=== PATIENT | female | born 1975 | race Caucasian/White ===

== ENCOUNTER 2016-12-05 23:13 | Inpatient (IN) | payer OTHER ==
[~2016-12-05] VITALS: Ht 160 cm; Wt 50.2 kg
[2016-12-06 00:21] LABS: AMPHETAMINE NEGATIVE (500 ng/mL); BARBITURATES NEGATIVE (200 ng/mL); BENZODIAZEPINES NEGATIVE (150 ng/mL); COCAINE NEGATIVE (150 ng/mL); INTERNAL CONTROLS VALID? YES; METHADONE NEGATIVE (200 ng/mL); METHAMPHETAMINE NEGATIVE (500 ng/mL); OPIATES (MORPHINE) NEGATIVE (100 ng/mL); OXYCODONE NEGATIVE (100 ng/mL); PHENCYCLIDINE NEGATIVE (25 ng/mL); PROPOXYPHENE NEGATIVE (300 ng/mL); THC CANNABINOIDS NEGATIVE (50 ng/mL); TRICYCLIC ANTIDEPRESSANTS NEGATIVE (300 ng/mL)
[2016-12-06 00:21] LABS: BASOPHIL COUNT 0.1 K/uL (0-0.1); EOSINOPHIL (%) 1.3 % (0-5); EOSINOPHIL COUNT 0.1 K/uL (0-0.3); IMMATURE GRANULOCYTE (%) 0.4 % (0.0-0.7); IMMATURE GRANULOCYTE COUNT 0.3 K/uL; LYMPHOCYTE COUNT 2.8 K/uL (1.0-2.8); MCH 29.1 PG (29.0-34.0); MCHC 33.3 G/DL (30.0-36.0); MCV 87.4 FL (83-99); MEAN PLAT.VOLUME 9.9 uM^3 (9.5-12.4); MONOCYTE (%) 9.2 % (3-12); MONOCYTE COUNT 0.6 K/uL (0-0.8); NEUTROPHIL (%) 47.9 % (45-76); NEUTROPHIL COUNT 3.3 K/uL (1.8-6.4); PLATELET COUNT 250 K/uL (156-360); RBC DIS.WIDTH-CV 12.9 % (11.8-14.6); RBC DIS.WIDTH-SD 39.9 % (39-53); RED BLOOD COUNT 4.12 M/uL (3.80-5.20)
[2016-12-06 00:32] LABS: CHLORIDE 109 mEq/L (99-109); POTASSIUM 3.7 mEq/L (3.7-5.4); SODIUM 140 mEq/L (136-147)
[2016-12-06 00:34] LABS: GLUCOSE 98 mg/dL (70-99)
[2016-12-06 00:35] LABS: ANION GAP 6 MEQ/L (2-14)
[2016-12-06 00:36] LABS: TOTAL BILIRUBIN 0.2 mg/dL (0.0-1.0)
[2016-12-06 00:37] LABS: SERUM ETHYL ALCOHOL < 10 mg/dL
[2016-12-06 00:38] LABS: ALKALINE PHOSPHATASE 70 IU/L (3-129); GFR ESTIMATE (CALCULATED) > 59 mL/min/
[2016-12-06 00:40] LABS: UREA NITROGEN (BUN) 16 mg/dL (9-23)
[2016-12-06 00:41] LABS: SALICYLATE < 5.0 MG/DL (15-30)
[2016-12-06] MEDS ORDERED: REMERON15 M2 PO (07:28)
[2016-12-06] MEDS ORDERED: VITAMIN D31000 UNI2 PO (07:29)
[2016-12-06] MEDS ORDERED: CLONAZEPAM1 MG PO (07:29)
[2016-12-06] MEDS ORDERED: VITAMIN C1000 MG PO (07:29)
[2016-12-06] MEDS ORDERED: SYSTANE ULTRA 015 ML BOTH EYES (07:31)
[2016-12-06 10:24] VITALS: BP 109/57
[2016-12-06 10:31] VITALS: BP 109/57
[2016-12-06] MEDS ORDERED: REXULTI1 MG PO (10:57)
[2016-12-06 15:35] VITALS: BP 107/58
[2016-12-07 07:48] VITALS: BP 126/54
[2016-12-07] MEDS ORDERED: FLUOXETINE HCL10 MG PO (09:44)
== END 2016-12-07 10:55 | disposition home or self-care (01) | DRG 885 ==
LOC: EME 23:13 → EDOF 12-06 05:43 → 1WEST 12-06 10:21
PROVIDERS: Emergency Medicine
DX: F31.81 Bipolar II disorder (principal); T42.4X2A Poisoning by benzodiazepines, intentional self-harm, initial encounter
CPT/HCPCS: 80053; 85025; 90839; 93005; 99281; 99285; G0480; J7030